=== PATIENT | male | born 1985 | race Caucasian/White ===

== ENCOUNTER 2016-07-25 19:53 | Emergency (ER) | payer MEDICAID ==
[~2016-07-25] VITALS: Ht 195.6 cm; Wt 90.7 kg
[2016-07-25 20:13] VITALS: BP 132/77
--- NOTE | 2016-07-25 23:02 | NUR ---
PATIENT LEFT WITHOUT BEING SEEN BY DR. BAJWA. NO FURTHER CARE PROVIDED FOR PATIENT.
== END 2016-07-25 23:03 | disposition left against medical advice (07) ==
LOC: MED 19:53
DX: S61.412A Laceration without foreign body of left hand, initial encounter (principal); Z53.21 Procedure and treatment not carried out due to patient leaving prior to being seen by health care provider